=== PATIENT | female | born 1970 | race Asian ===

== ENCOUNTER 2016-11-19 07:32 | Outpatient (CLI) | payer OTHER ==
[~2016-11-19 07:32] MED LIST: METOPROLOL25 M1 OR; SIMV20TA2 PO; ZESTRIL40 MG PO
== END 2016-11-19 07:44 | disposition short-term general hospital (02) ==
LOC: AMB 07:32
DX: R42 Dizziness and giddiness (principal); R53.1 Weakness
CPT/HCPCS: A0425; A0427

== ENCOUNTER 2016-11-19 07:50 | Emergency (ER) | payer OTHER ==
[~2016-11-19] VITALS: Ht 160 cm; Wt 126.1 kg
[2016-11-19 07:55] VITALS: TEMP 98
[2016-11-19 08:07] LABS: PLATELET COUNT 93 K/uL (152-353)
[2016-11-19 10:48] VITALS: BP 128/89
== END 2016-11-19 10:48 | disposition home or self-care (01) ==
LOC: ED 07:50
DX: R53.1 Weakness (principal)
CPT/HCPCS: 80053; 85027; 99283

== ENCOUNTER 2020-09-26 14:55 | Outpatient (CLI) | payer OTHER | END 2020-09-26 20:10 | disposition home or self-care (01) | LOC: MRI 14:55 | PROVIDERS: ATTEND Nurse Practitioner Family | DX: G44.1 Vascular headache, not elsewhere classified (principal) ==

== ENCOUNTER 2020-11-20 04:44 | Observation (INO) | payer OTHER ==
[~2020-11-20] VITALS: Ht 160 cm; Wt 134.9 kg
[2020-11-20] VITALS (11 sets, daily range): BP systolic 107–140; BP diastolic 47–96; TEMP 97.7–98.8; Ht 160 cm; Wt 134.9 kg
[2020-11-20] MEDS ORDERED: HYDR25TA60 PO ×2 (05:02→12:08)
[2020-11-20] MEDS ORDERED: KETOROLAC10 MG PO ×2 (05:03→12:04)
[2020-11-20] MEDS ORDERED: ESCITALOPRAM5 MG PO ×2 (05:04→12:05)
[2020-11-20] MEDS ORDERED: LIPITOR20 MG PO ×2 (05:05→12:02)
[2020-11-20 05:17] LABS: PLATELET COUNT 279 K/uL (152-353)
[2020-11-20 05:46] LABS: SODIUM 140 mmol/L (136-145)
[2020-11-20 05:48] LABS: POTASSIUM 2.4 mmol/L (3.6-5.2)
[2020-11-20] MEDS ORDERED: NIFE30TA PO (12:11)
--- NOTE | 2020-11-20 14:00 | NUR ---
PATIENT WAS BROUGHT TO MED/SURG FLOOR VIA WHEELCHAIRT TO ROOM 1114. ADMISSION ASSESSMENT COMPLETED AT THIS TIME.
[2020-11-20 18:53] LABS: POTASSIUM 3.9 mmol/L (3.6-5.2)
--- NOTE | 2020-11-20 23:49 | NUR ---
PATIENT DENIES ANY PAIN OR NAUSEA. HAD FAMILY AT THE BEDSIDE AT 1998
--- NOTE | 2020-11-20 23:52 | NUR ---
PATIETN IS RESTING QUIETLY. BREATHING IS STEADY NON LABORED. NO DISTRESS NOTED
--- NOTE | 2020-11-21 01:10 | NUR ---
PATIENT IS RESTING QUIETLY AND IS SLEEPING. BREATHING IS REGULAR NON LABORED
--- NOTE | 2020-11-21 02:17 | NUR ---
PATIENT WAS ROUNDRED ON. PATIENT DENIED ANY PAIN , SOB, OR TIGHTNESS. PATIENT ALSO DENIES ANY CRAMPING OR BURNING
[2020-11-21 03:50] VITALS: BP 141/84; TEMP 97.5
--- NOTE | 2020-11-21 13:15 | NUR ---
PT RECIEVED DISCHARGE TEACHING AND INSTRUCTIONS. PT VERBALIZED UNDERSTANDING OF DISCHARGE INSTRUCTIONS. PT'S IV HAS BEEN REMOVED WITH CATHETER INTACT. PT WALKED FROM ROOM THROUGH FRONT DOORS TO PERSONAL VEHICLE WITH PERSONAL BELONGINGS IN HAND. NAD WAS NOTED DURING DISCHARGE.
== END 2020-11-21 13:20 | disposition home or self-care (01) ==
LOC: ED 04:44 → MED/SURG 07:57
PROVIDERS: ADMIT Emergency Medicine Emergency Medical Services; ATTEND Internal Medicine
DX: E87.6 Hypokalemia (principal); I10 Essential (primary) hypertension; E78.49 Other hyperlipidemia; K21.9 Gastro-esophageal reflux disease without esophagitis; F41.8 Other specified anxiety disorders
CPT/HCPCS: 36415; 80048; 80053; 83690; 84484; 85027; 87635; 93005; 96365; 96366; 96372; 96375; 99220; 99284; G0378; J1650; J2405; U0003

== ENCOUNTER 2020-12-25 10:28 | Emergency (ER) | payer OTHER ==
[~2020-12-25] VITALS: Ht 160 cm; Wt 134.7 kg
[~2020-12-25 10:28] MED LIST changes: +ESCITALOPRAM5 MG PO; +HYDR25TA60 PO; +KETOROLAC10 MG PO; +LIPITOR20 MG PO; +NIFE30TA PO
[2020-12-25 10:32] VITALS: TEMP 98.4
[2020-12-25 10:52] VITALS: BP 160/88
== END 2020-12-25 10:53 | disposition home or self-care (01) ==
LOC: ED 10:28
PROC: 09C37ZZ Extirpation of Matter from Right External Auditory Canal, Via Natural or Artificial Opening (ICD-10-PCS; principal; 2020-12-25)
DX: T16.1XXA Foreign body in right ear, initial encounter (principal)
CPT/HCPCS: 99282

== ENCOUNTER 2022-10-29 14:54 | Outpatient (CLI) | payer OTHER | END 2022-10-29 19:22 | disposition home or self-care (01) | LOC: MAMMO 14:54 | PROVIDERS: ATTEND Nurse Practitioner Family | DX: Z12.31 Encounter for screening mammogram for malignant neoplasm of breast (principal) ==